=== PATIENT | female | born 1995 | race Caucasian/White ===

== ENCOUNTER 2024-03-03 17:35 | Outpatient (CLI) | payer SELFPAY ==
[2024-03-03 17:48] VITALS: BP 137/89; PULSE 67
[2024-03-03 17:49] VITALS: PULSE 67; O2SAT 100
[2024-03-03 19:03] VITALS: BP 118/74; PULSE 59
--- NOTE | 2024-04-24 18:21 | OB.TRI.NOTE ---
HPI - General General Date of Service: 03/03/24 HPI Narrative GARCÍA YE, is a 28 F who presents for rule out labor PFSH PFSH Medical History (Updated 04/24/24 @ 18:31 by Marla Carroll CNM) Gestational HTN Home Medications ?Medication ?Instructions ?Recorded ?Last Taken ?Type acetaminophen 325 mg tablet 650 mg (2 x 325 mg) PO Q6H PRN 03/06/24 Unknown Rx (Tylenol) pain #30 tabs docusate sodium 100 mg capsule 100 mg PO BID constipation #30 caps 03/06/24 Unknown Rx (Colace) ibuprofen 600 mg tablet 600 mg PO Q6H PRN pain #30 tabs 03/06/24 Unknown Rx Allergy/AdvReac Type Severity Reaction Status Date / Time No Known Allergies Allergy Verified 03/04/24 09:12 Surgical History (Updated 03/11/24 @ 00:03 by Christiana Moreira) Status post bilateral salpingectomy S/P repeat low transverse Previous section Social History Smoking Status: Never smoker History Elective abortions Hx Para 2 Spontaneous abortions Hx # Term Pregnancies Ectopic pregnancies Hx # Pregnancies Multiple births # of living children NST FHR Rate Baby A Baseline: 120 Variability:: Moderate Accelerations:: 15 x 15 Decelerations:: None NST Reactive:: Yes Uterine Activity:: irregular Assessment & Plan (1) False labor: PLAN: Plan 1) False labor 2) Unchanged cervix 3) D/C home
== END 2024-03-03 19:05 | disposition home or self-care (01) ==
LOC: WPOUT 17:46 → WP 17:47
PROVIDERS: Referring Provider Advanced Practice Midwife; Visit Provider Advanced Practice Midwife
DX: O47.9 False labor, unspecified (principal); Z3A.00 Weeks of gestation of pregnancy not specified
CPT/HCPCS: 59025; 59050; 99221; G0378

== ENCOUNTER 2024-03-04 08:42 | Inpatient (IN) | payer SELFPAY ==
[2024-03-04] VITALS (18 sets, daily range): BP systolic 115–129; BP diastolic 76–89; PULSE 59–84; RESP 14–16; TEMP 36.1–36.7; O2SAT 97–100; BMI 26.0
[2024-03-04] MEDS: Lactated Ringers 1,000 ML 999 ML IV (08:45)
[2024-03-04 09:14] LABS: Absolute Lymphocyte Count 1.72 X10^3/uL (0.83-4.51); Absolute Neutrophil Count 4.5 X10^3/uL (2.0-7.7); Basophil# 0.02 X10^3/uL; Basophil% 0.3 % (0-1); Eosinophil# 0.16 X10^3/uL; Eosinophils% 2.3 % (0-5); Hematocrit 38.6 % (37-47); Hemoglobin 12.9 g/dL (12.0-15.0); Lymphocyte # 1.72 X10^3/ul (0.83-4.51); Lymphocyte % 24.9 % (19-41); Mean Corp Hgb Conc 33.4 g/dL (32-36); Mean Corpuscular Hgb 26.5 pg (27.0-32.0); Mean Corpuscular Volume 79.3 fL (81-99); Monocyte# 0.49 X10^3/uL; Monocyte% 7.1 % (0-10); NRBC Flagged by Analyzer 0 % (0-5); Neutrophil % 65.1 % (47-70); Platelet Count 169 K/mm3 (150-450); RBC Distribution Width CV 14.6 % (11.6-14.6); RBC Distribution Width SD 41.5 fl (35.1-43.9); Red Blood Count 4.87 M/mm3 (4.2-5.4); White Blood Count 6.9 K/mm3 (4.4-11.0)
--- NOTE | 2024-03-04 09:32 | PCM.HP.OB ---
HPI - General General Date of Admission: 03/04/24 HPI Narrative GARCÍA YE, is a 28 F @ 38 weeks who presents c/o ctx and bleeding- found to be 3cm , last night she was evaluated in L&D and was closed. so making cervical change- pt requesting salpingectomy- is self pay pt reports signed title 19. Case Managers Dr. Felix Melvin used for consent today. PFSH PFS Medical History (Updated 03/04/24 @ 09:[address] Gertrude Chaidez MD) Gestational HTN Home Medications ?Medication ?Instructions ?Recorded ?Last Taken ?Type vit no.95-ferrous 1 tab PO DAILY 03/04/24 03/03/24 21:00 History fumarate 28 mg-folic acid 800 mcg 1 TAB tablet () Allergy/AdvReac Type Severity Reaction Status Date / Time No Known Allergies Allergy Verified 03/04/24 09:12 Social History Smoking Status: Never smoker History Elective abortions Hx Para 2 Spontaneous abortions Hx # Term Pregnancies Ectopic pregnancies Hx # Pregnancies Multiple births # of living children NST FHR Rate Baby A Baseline: 130 Variability:: Moderate Accelerations:: 15 x 15 Decelerations:: None NST Reactive:: Yes FHR Category:: Category I Uterine Activity:: irregular Vital Signs Vital Signs Vital Signs: 03/04/24 09:05 Temperature 98.0 F Temperature Source Temporal Pulse Rate 64 Respiratory Rate 16 Blood Pressure 125/82 H Blood Pressure Mean 96 Blood Pressure Source Monitor Blood Pressure Position Semi-Fowlers Blood Pressure Location Left Arm Pulse Ox 99 Oxygen Delivery Method Room Air Weight Weight: 62.5 kg Body Mass Index (BMI) 26.0 Labs Labs Labs: Blood Type O POSITIVE Antibody Screen NEGATIVE Hct 38.6 % (37-47) Hgb 12.9 g/dL (12.0-15.0) Syphilis Total Ab Pending Assessment & Plan (1) Previous delivery affecting : (2) Request for sterilization: (3) 38 weeks gestation of : PLAN: Plan Admit to L&D [place] FHR/TOCO NPO status Monitor VS OR team notified PRE ABX ordered consent obtained- risks of surgery and possible need for transfusion discussed, discussed salpingectomy is permanent - pt wishes to proceed.
[2024-03-04] MEDS: Sodium Citrate/Citric Acid 30 ML UDC PO (09:37)
[2024-03-04] MEDS: Acetaminophen 500 MG Tablet 1000 MG PO ×4 (09:37→23:52)
[2024-03-04] MEDS: Cefazolin 2 GM in Syringe IV (09:43)
--- NOTE | 2024-03-04 10:11 | FALS_PTH ---
PATIENT: GARCÍA GARCIA LOC: [facility] U#:[id number] AGE/SX: 28 ROOM: WP008 RE03/04/[address]: Dr. Gertrude Chaidez, MDDOB: 1995 BED: 1 DIS: 03/06/2024 SPEC #: [id number] RECD: 03/04/24 14:46 STATUS: BASSAM RUBÉN #: [id number] JOSE: 03/04/24 10:[address]: Gertrude Chaidez DEPT: SURGICAL PATHOLOGY RECD BY: Power Lord ENTERED: 03/06/24 07:45 SP TYPE: FALL TUBES OTHR DR: Deb Primary Care Phys Tissues: Fallopian tube Procedures: Surgery Specimen Level II HEADER OPERATION: Tubal ligation PRE-OP DIAGNOSIS: Further testing from tubal TISSUE SUBMITTED: Bilateral fallopian tubes MICROSCOPIC DIAGNOSIS Right fallopian tube, salpingectomy: Complete cross section of fallopian tube with no pathologic change. Left fallopian tube, salpingectomy: Complete cross section of fallopian tube with no pathologic change. AM: 03/07/2024 MICROSCOPIC DESCRIPTION Slides are reviewed. GROSS DESCRIPTION Received in fixative is one container labeled with the patient's name and designated bilateral fallopian tubes - stich on right. The specimen consists of two fallopian tubes with an average length of 6.0 cm and has an average diameter of 0.8 cm. Both fallopian tubes have normal fimbriated ends. No mass lesions are identified. Load Builder sections are submitted in two cassettes as follows: 1 - right fallopian tube, 2 - left fallopian tube. / AM: 03/06/2024 TC:4 CPT: 24339 x2
--- NOTE | 2024-03-04 10:39 | EX.PCM.OBRPT ---
Operative Report (OB) Cecarean Details Procedure Type: low transverse (bilateral salpingectomy ) Date of Procedure: 03/04/24 Procedure Start Time: : Procedure Stop Time: :52 Time of Delivery: 10:11 Pre-Operative Diagnosis: Repeat Elective and Desires elective sterilization Post-Operative Diagnosis: Same as Pre-operative diagnosis Classification: ARLEEN Type of Anesthesia: Spinal Antibiotic Given: Ancef 2 grams IV x1 Drain: Charles to straight drain Estimated Blood Loss: 600 Fluids Replaced: 1000 Findings Description of surgery: After informed consent was obtained the patient was taken the operating room she was given spinal anesthesia. She was then placed in the supine position. She was prepped and draped in the normal sterile fashion. Anesthesia was found to be adequate. At this time a Pfannenstiel skin incision was made with a knife was carried down to the underlying layer of the fascia. The fascial incision was then extended laterally using camacho scissor Attention was then turned to the superior aspect of the fascial edge was grasped with 2 straight Arthur clamps tented up and the rectus muscle dissected off sharply Rectus muscles were then in the midline sharply and peritoneum was entered bluntly. Gentle opposing traction was placed. At this time the vesicouterine peritoneum was identified. Scalpel was used to make a uterine incision in a low transverse fashion. The uterus was then entered bluntly gentle opposing traction was placed to extend this incision. Membranes were ruptured clear. Infant's head was brought to the uterine incision was delivered atraumatically. was vigourous at delivery and delayed cord clamping performed. Cord was clamped and cut was handed to the waiting nursery team. The Placenta was removed from the uterus. The uterus was then removed from the abdominal cavity. The uterus was cleared of all clots and debris using a lap. At this time the uterine incision was reapproximated using #1 Vicryl in a running locked fashion. Hemostasis was appreciated. At this time the LigaSure device was open. Babcocks were placed on the tubes and LigaSure was used to coagulate and ligate along the mesosalpinx in an avascular area. The tubes were removed in their entirety. Repeated on both sides. Posterior cul-de-sac was then cleared of all clots and debris. Uterus was placed back in the abdominal cavity. Gutters were cleared of all clots and debris. Uterine incision was reevaluated and noted to be of excellent hemostasis. Heema blast was placed over the uterine incision. At this time the peritoneum and muscle was grasped with Kellys reapproximated using #2 Vicryl suture in a running fashion. Hemablast placed over the rectus muscle. Fascia was then reapproximated using #1 Vicryl in a running fashion. Subcu layer was irrigated with NS, reapproximated with #2 0 plain gut suture in an interrupted fashion. Subcu layer was closed using 4-0 Viryl in a subcu fashion. Dry sterile dressing was applied. Instrument lap needle count correct ?2. Anticipated normal postoperative course. 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
[2024-03-04 10:56] LABS: Syphilis Antibodies Non-reactive
[2024-03-04] MEDS: Oxytocin 15 Units/NS 250ml 15 UNITS/250 ML IV.SOLN 83 UNITS IV (11:10)
[2024-03-04] MEDS: Ketorolac 30 MG/ML Syringe IV ×3 (11:33→23:53)
[2024-03-04] MEDS: Ondansetron 4 MG/2 ML Vial IV (14:04)
[2024-03-04] MEDS: Lactated Ringers 1,000 ML 100 ML IV (14:11)
[2024-03-04] MEDS: Nalbuphine 10 MG/ML Ampul 5 MG IV (19:53)
[2024-03-04] MEDS: 0.9% Saline Lock 10 ML Syringe IV ×2 (19:54→23:53)
[2024-03-04] MEDS: FLU VACC 2024-25(6MOS UP)/PF 45 MCG/0.5 ML SYRINGE IM (22:48)
[2024-03-05 03:59] VITALS: BP 109/82; PULSE 60; RESP 16; TEMP 36.6; O2SAT 97
[2024-03-05] MEDS: Ketorolac 30 MG/ML Syringe IV (05:52)
[2024-03-05 06:11] LABS: Hematocrit 32.9 % (37-47); Hemoglobin 11.1 g/dL (12.0-15.0); Mean Corp Hgb Conc 33.7 g/dL (32-36); Mean Corpuscular Hgb 26.8 pg (27.0-32.0); Mean Corpuscular Volume 79.5 fL (81-99); Mean Platelet Vol. 10.6 fl (6.2-12.0); Platelet Count 141 K/mm3 (150-450); RBC Distribution Width CV 14.8 % (11.6-14.6); RBC Distribution Width SD 42.2 fl (35.1-43.9); Red Blood Count 4.14 M/mm3 (4.2-5.4)
--- NOTE | 2024-03-05 08:44 | PCM.PN.OB ---
Subjective Subjective Doing well per patient and nursing staff. Ambulating and taking PO without difficulty. Voiding and passing flatus. Pain controlled. , services for assistance. Denies headache, visual changes, chest pain, shortness of breath, leg pain or increased bleeding. Lochia normal. Objective Data Objective Data Vital Signs: Vital Signs Temp Pulse Resp BP Pulse Ox O2 Del Method 98 F 60 16 109/82 H 97 Room Air 03/05/24 03:59 03/05/24 03:59 03/05/24 03:59 03/05/24 03:59 03/05/24 03:59 03/05/24 03:59 Oxygen Delivery Method Room Air Weight: 137 lb 12.623 oz Body Mass Index (BMI) 26.0 Intake & Output: Intake and Output for Last 24 Hours 03/03/24 03/04/24 03/05/24 23:59 23:59 23:59 Intake Total 1320 / 1320 1000 / 1000 Output Total 800 / 800 150 / 150 Balance 520 / 520 850 / 850 Lab / Micro Data 03/05/24 05:57 Labs: Laboratory Results - last 24 hr 03/04/24 08:55: WBC 6.9, RBC 4.87, Hgb 12.9, Hct 38.6, MCV 79.3 L, MCH 26.5 L, MCHC 33.4, RDW Std Deviation 41.5, RDW Coeff of Steven 14.6, Plt Count 169, MPV 11.0, Immature Gran % (Auto) 0.300, Neut % (Auto) 65.1, Lymph % (Auto) 24.9, Van Zandt % (Auto) 7.1, Eos % (Auto) 2.3, Baso % (Auto) 0.3, Absolute Neuts (auto) 4.5, Absolute Lymphs (auto) 1.72, Nucleated RBC % 0, Syphilis Total Ab Non-reactive, Blood Type O POSITIVE, Antibody Screen NEGATIVE 03/05/24 05:57: WBC 6.0, RBC 4.14 L, Hgb 11.1 L, Hct 32.9 L, MCV 79.5 L, MCH 26.8 L, MCHC 33.7, RDW Std Deviation 42.2, RDW Coeff of Steven 14.8 H, Plt Count 141 L, MPV 10.6 ROS Constitutional Constitutional: Reports systems reviewed and no addt'l complaints, except as documented; Denies headache(s) Eyes Eyes: Denies acute decrease in peripheral vision, blurry vision or change in vision ENT HEENT: Reports systems reviewed and no addt'l complaints, except as documented Cardiovascular Cardiovascular: Denies chest pain or dizziness Respiratory/Chest Respiratory/Chest: Denies cough, dyspnea, dyspnea on exertion, shortness of breath at rest or shortness of breath with exertion Gastrointestinal Gastrointestinal: Denies abdominal pain, diarrhea, nausea or vomiting Genitourinary Genitourinary: Denies abdominal discomfort Musculoskeletal Musculoskeletal: Denies limited range of motion Integumentary Integumentary: Reports systems reviewed and no addt'l complaints, except as documented Neurologic Neurologic: Reports systems reviewed and no addt'l complaints, except as documented Psychiatric Psychiatric: Reports systems reviewed and no addt'l complaints, except as documented Endocrine Endocrinology: Reports systems reviewed and no addt'l complaints, except as documented Hematologic/Lymphatic Hematologic/Lymphatic: Reports systems reviewed and no addt'l complaints, except as documented Allergic/Immunologic Allergic/Immunologic: Reports systems reviewed and no addt'l complaints, except as documented Physical Exam Const alert and oriented x3 General Appearance: cooperative Orientation / Consciousness: awake, oriented to person, oriented to place and oriented to time Exam Limitations: no limitations HEENT normocephalic Head and Scalp: normal to inspection, normocephalic and atraumatic Face and Sinus: normal facial exam Eyes General Eye: normal appearance of both eyes Neck full ROM Chest Chest: symmetrical chest wall rise Resp normal respiratory effort and normal air movement Auscultation: clear to auscultation bilaterally Cardio regular rate, regular rhythm, S1 normal heart sound, S2 normal heart sound, no murmurs, no rub, no gallops and no clicks GI normal to inspection, nondistended, normoactive bowel sounds and non-tender GI Narrative: dressing clean and dry appearance of the vagina normal Bladder / Kidney Exam: no CVA tenderness Back/Spine normal ROM Extremity normal to inspection and full ROM Skin no rashes or lesions noted Neuro oriented x3, CN's II-XII intact bilaterally and moves all extremities Sensorium / Orientation: awake, alert and oriented to person Motor Exam: clonus absent Deep Tendon Reflexes: Rt Patellar (L4): 2+ and Lt Patellar (L4): 2+ Assessment & Plan (1) Request for sterilization: (2) Previous delivery affecting : (3) S/P repeat low transverse : (4) Status post bilateral salpingectomy: PLAN: Plan 1) Routine POD#1 Repeat section with bilateral salpingectomy 2) Vitals stable 3) I&O 4) Pain management 5) services PRN 6) Planning D/C home tomorrow
[2024-03-05 09:00] VITALS: BP 118/78; PULSE 92; RESP 16; TEMP 36.8
[2024-03-05] MEDS: Senna/Docusate Sodium 1 Tablet PO (09:07)
[2024-03-05] MEDS: Acetaminophen 500 MG Tablet 1000 MG PO ×3 (09:07→21:13)
[2024-03-05] MEDS: Ibuprofen 600 MG Tablet PO ×2 (12:03→17:44)
[2024-03-05 13:20] VITALS: BP 108/74; PULSE 68; RESP 16; TEMP 36.8
[2024-03-05 20:05] VITALS: BP 120/77; PULSE 61; RESP 16; TEMP 36.7; O2SAT 98
[2024-03-06] MEDS: Ibuprofen 600 MG Tablet PO ×3 (00:01→12:48)
[2024-03-06 02:30] VITALS: BP 115/74; PULSE 66; RESP 18; TEMP 36.1; O2SAT 96
[2024-03-06] MEDS: Acetaminophen 500 MG Tablet 1000 MG PO ×3 (03:16→15:35)
--- NOTE | 2024-03-06 08:26 | DCINST_ITS ---
Discharge Instructions Diet Discharge Diet: No restrictions DC O2, CPAP, BIPAP needs Additional Home O2 Discharge instructions: No Dressing / Incision Discharge Activity: May Drive (once you feel strong enough to slam on a brake or turn a steering wheel sharply) and May Shower May resume sexual activity in: 6 weeks (nothing in the vagina for 6 weeks) Ice area for (Minutes): 15 Weight Bearing Status: Weight bearing as tolerated Lifting Restrictions: nothing heavier than baby Dressing / Incision Call your doctor if your incision/area has: Continuous Slow Oozing, Sudden Increased Bleeding, Increased Pain/ Swelling, Increased Redness, Foul Smelling Discharge and Swelling at the incision site Call your doctor if you observe: Fever of 101 or Higher, Coldness, Increased Pain, Numbness or Tingling, Inability to urinate, Inability to have a bowel movement, Using more than 1 pad per hour, Shortness of breath, Dizziness, Swelling in the ankles, Chest pain, Increased palpitations (irregular heartbeat), Calf discomfort and Uncontrolled pain Cleanse incision/area with: Soap & Water Follow Up Care Please Follow Up With: Gertrude Chaidez MD When: 1-2 weeks for an incision check 6 weeks for a visit Test Results: Test results from this visit will be discussed in further detail at your follow- up appointment, if applicable. Discharge Plan Admission Admit Date/Time: 03/04/24 08:42 Primary Reason for Your Visit: Delivery Attending Provider: Gertrude Chaidez Primary Care Provider: Care Physician,Deb Primary Instructions Patient Instructions: After a Discharge Orders/Prescriptions Prescriptions: New ibuprofen 600 mg tablet 600 mg PO Q6H PRN (Reason: pain) Qty: 30 0RF acetaminophen [Tylenol] 325 mg tablet 650 mg PO Q6H PRN (Reason: pain) Qty: 30 0RF docusate sodium [Colace] 100 mg capsule 100 mg PO BID Qty: 30 0RF Discontinued PNV cmb#95-ferrous fumarate-FA [] 28 mg iron- 800 mcg tablet 1 tab PO DAILY Referrals / Follow Up: Care Physician,No Primary [Primary Care Provider] - Disposition Disposition (needs filled in before D/C Order can be placed): Home, Self Care
--- NOTE | 2024-03-06 08:29 | PCM.PN.OB ---
Subjective Subjective Pt doing well. Pain well controlled. Lochia normal. Ambulating and voiding without difficulty. Tolerating a diet without nausea or vomiting. Denies CP, SOB, lightheadedness, dizziness, leg pain. Friend at bedside and translating for the patient. Objective Data Objective Data Vital Signs: Vital Signs Temp Pulse Resp BP Pulse Ox O2 Del Method 96.9 F L 66 18 115/74 96 Room Air 03/06/24 02:30 03/06/24 02:30 03/06/24 02:30 03/06/24 02:30 03/06/24 02:30 03/06/24 02:30 Oxygen Delivery Method Room Air Weight: 137 lb 12.623 oz Body Mass Index (BMI) 26.0 Intake & Output: Intake and Output for Last 24 Hours 03/04/24 03/05/24 03/06/24 23:59 23:59 23:59 Intake Total 1320 / 1320 1000 / 1000 Output Total 800 / 800 150 / 150 Balance 520 / 520 850 / 850 Lab / Micro Data 03/05/24 05:57 Physical Exam Const alert and no apparent distress General Appearance: comfortable HEENT normocephalic Resp normal respiratory effort GI soft to palpation and non-distended GI Narrative: ATTP, non acute, incision c/d/i Extremity no calf tenderness Assessment & Plan (1) Status post bilateral salpingectomy: (2) S/P repeat low transverse : PLAN: Doing well post op. Meeting milestones for discharge. Patient desires to go home. Discharge instructions reviewed and questions answered.
--- NOTE | 2024-03-06 08:32 | PCM.DC.SUM ---
Providers Date of Admission: 03/04/24 Date of Discharge: 03/06/24 Primary Care Physician: Deb Primary Care Phys Reason For Visit: C SECTION Diagnosis Discharge Diagnosis (1) Status post bilateral salpingectomy: Status: Acute Code(s): Z90.79 - Acquired absence of other genital organ(s) (2) S/P repeat low transverse : Status: Acute Code(s): Z98.891 - History of uterine scar from previous surgery Plan: Doing well post op. Meeting milestones for discharge. Patient desires to go home. Discharge instructions reviewed and questions answered. Medications at Discharge Home Medications acetaminophen 325 mg tablet (Tylenol) 650 mg (2 x 325 mg) PO Q6H PRN pain #30 tabs 03/06/24 docusate sodium 100 mg capsule (Colace) 100 mg PO BID constipation #30 caps 03/06/24 ibuprofen 600 mg tablet 600 mg PO Q6H PRN pain #30 tabs 03/06/24 Hospital Course Operations section and - (bilateral salpingectomy) Summary of Care Provided Minutes Spent on Discharge: 15 Hospital Course: Patient was admitted at 38 week gestation in labor. She desired a repeat section and a tubal sterilization. See operative report for details regarding repeat section with bilateral salpingectomy. She was discharged home in good condition on POD#2 to follow up in the office. Weight / BMI Weight Weight: 137 lb 12.623 oz Body Mass Index (BMI) 26.0 ABG / Lab / Microbiology Data 03/05/24 05:57 D/C Instructions Discharge Diet: No restrictions May resume sexual activity in: 6 weeks (nothing in the vagina for 6 weeks) Ice area for (Minutes): 15 Weight Bearing Status: Weight bearing as tolerated Call your doctor if your incision/area has: Continuous Slow Oozing, Sudden Increased Bleeding, Increased Pain/ Swelling, Increased Redness, Foul Smelling Discharge and Swelling at the incision site Call your doctor if you observe: Fever of 101 or Higher, Coldness, Increased Pain, Numbness or Tingling, Inability to urinate, Inability to have a bowel movement, Using more than 1 pad per hour, Shortness of breath, Dizziness, Swelling in the ankles, Chest pain, Increased palpitations (irregular heartbeat), Calf discomfort and Uncontrolled pain Cleanse incision/area with: Soap & Water DC O2, CPAP, BIPAP Needs Additional Home O2 Discharge instructions: No DC home with Oxygen: No Please Follow Up With: Gertrude Chaidez MD When: 1-2 weeks for an incision check 6 weeks for a visit Meaningful Use Info Meaningful Use Meaningful Use Diagnoses (Choose all that apply): None applicable Ischemic Stroke Statin Dosing Therapy Reference: STATIN DOSE THERAPY REFERENCE: * Patients > 75 years receive moderate or high dose statin therapy. * Patients 75 years or YOUNGER should receive HIGH intensity statin dose unless contraindicated. You will be required to document reason for non-treatment if statin daily dose does not meet guidelines. HIGH DOSE STATIN THERAPY DAILY Atorvastatin > than or = to 40 mg Rosuvastatin > than or = to 20 mg Amlodipine + Atorvastatin > than or = to 2.5/40 mg Ezetimibe + Simvastatin 10/80 mg Simvastatin 80mg Discharge Plan Admission Admit Date/Time: 03/04/24 08:42 Primary Reason for Your Visit: Delivery Attending Provider: Gertrude Chaidez Primary Care Provider: Care Physician,Deb Primary Instructions Patient Instructions: After a Discharge Orders/Prescriptions Prescriptions: New ibuprofen 600 mg tablet 600 mg PO Q6H PRN (Reason: pain) Qty: 30 0RF acetaminophen [Tylenol] 325 mg tablet 650 mg PO Q6H PRN (Reason: pain) Qty: 30 0RF docusate sodium [Colace] 100 mg capsule 100 mg PO BID Qty: 30 0RF Discontinued PNV cmb#95-ferrous fumarate-FA [] 28 mg iron- 800 mcg tablet 1 tab PO DAILY Referrals / Follow Up: Care Physician,Deb Primary [Primary Care Provider] - Disposition Disposition (needs filled in before D/C Order can be placed): Home, Self Care
[2024-03-06] MEDS: Senna/Docusate Sodium 1 Tablet PO (09:39)
[2024-03-06 09:43] VITALS: BP 127/92; PULSE 76; RESP 14; TEMP 36.6; O2SAT 97
[2024-03-06 13:02] VITALS: BP 123/86; PULSE 64; RESP 14; TEMP 36.6; O2SAT 98
[2024-03-06 18:29] VITALS: BP 133/91; PULSE 66; RESP 16; TEMP 36.7; O2SAT 98
[2024-03-06 18:30] VITALS: RESP 16
[2024-03-07 13:33] LABS: Pathology Specimen OB SEE PATHOLOGY REPORT
--- NOTE | 2024-03-08 12:04 | CASEMGMT ---
Social Work Assessment Labor and Delivery Unit Date of Referral: 03/04/24 Time of Referral: 1508 Referred By: Dr. Marcelino Date of Intervention: 03/06/24 Time of Intervention: 1430 Reason for Referral: resources, pt has no insurance, car seat or crib for baby at this time Sw completed chart review and acknowledges social work consult due to issues above. Sw presented to bedside and introduced self to mother of baby (LOUISE- Kierra) and explained sw role. Sw had family friend present, Abbey and MOB stated okay to complete assessment with friend present. Sw completed psychosocial assessment and got MOB connected to beneficial resources. History obtained from: MOB and friend, Abbey Household composition:LOUISE is currently residing with her sister, baby to be included in household when ready for discharge. MOB denies any issues or concerns with current housing. Patient's parent/guardian status: LOUISE states that she is from [facility] [facility], and has two children there who are being cared for by her mother. LOUISE states that she has been in the [facility] for 2 years and was in a relationship with father of baby, Dg. LOUISE reports that she is still in relationship with Dg, however he got deported back to [facility]. LOUISE states that she and FOB are still in relationship, but due to distance he is not a support to her at this time. Medical History:LOUISE is 28 year old female who is 3, para 2- now 3 following labor and delivery of . LOUISE received care during with [facility]. LOUISE presentd to hospital and required repeat for delivery of baby. Baby girl, named Taylor, was born on 03/04/24 weighing 6lb 6oz with apgars of 9 and 9 at one and five minutes of life, respectfully. LOUISE states that she is breast feeding and it is going well. Educational Status: LOUISE reports to graduating from high school in [place] [facility]. Financial Status: LOUISE was working on [employer] in [place], however now that baby is born she is not working. 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 Infant Supplies: LOUISE states that she has clothes, diapers and wipes for baby, but she does not have a crib or safe sleep space. LOUISE states that the baby was due on 12/16, so she thought she had more time to obtain these items. Sw got MOB connected to [facility] who helped her obtain a crib and car seat in order for baby to be discharged to home. Childcare/Caregiver(s): LOUISE and her sister will be the primary caregivers to baby. Transportation: LOUISE does not drive, she is dependent on her friend Abbey and her sister to help her with transportation Programs/Agencies Involved: MOB is not connected to any community agencies that help her financially. Sw provided MOB with list of pending sale to [facility] resources that she is able to get connected to, including: [facility], WIC and [facility]. MOB is also connected to resources through [facility] [employer] who will ensure that baby gets connected to Medicaid insurance. Children Services/Legal Issues: No history of children services involvement. At this time MOB is caring for baby and meeting her basic needs, no concerns regarding abuse, neglect and no referral to be made at this time. Behavioral Health Issues: Mental Health History: MOB denies mental health diagnoses or history. Substance Use History: MOB denies substance use history prior to and during . Family History: MOB denies family history of addiction/ substance use or significant mental health diagnoses. Maternal and Drug Screens: No drug screens observed during chart review. Family/Social Stressors: LOUISE expresses frustration due to not obtaining things that she needs for baby, including: car seat and safe sleep space prior to baby being born. Support Systems: LOUISE identifies that her sister and her friend, Abbey, are her biggest supports. Depression and Anxiety/Shaken Baby/Safe Sleeping:Sw educated MOB on signs and symptoms of baby blues and mood and anxiety disorders to be mindful of during this period. MOB states that she has not experienced any of these symptoms from her prior deliveries. MOB states that if she were to struggle with her mental health during this period her sister would be able to recognize that she is struggling and would know how to help and support her. Sw educated MOB on shaken baby prevention and ABCs of safe sleep. MOB expressed understanding. ASSESSMENT: MOB and baby admitted following labor and delivery of . MOB Maori speaking but has access to shirt ironer supervisor services and her friend Abbey who helps her interpret. MOB is not connected to any community resources and is in need of obtaining a crib and a car seat. Sw helped patient in obtaining those items to prepare for discharge. MOB does not have history of mental health history or substance use history. MOB answered questions asked but did not elaborate on answers. MOB observed to be holding baby and attentive to her needs in loving and affectionate manner. PLAN: MOB and baby to be discharged today. MOB got connected to [facility] who provided a car seat and safe sleep space. MOB was provided list of pending sale to [facility] and literature on signs and symptoms of baby blues and depression. No other services requested or indicated. Cornelius Oliver, CIVIL ENGINEERING PROFESSIONAL, DRUG WORKER
--- NOTE | 2024-03-10 17:05 | NURSING ---
Attempted f/up phone call, no ans, no voicemail set up
== END 2024-03-06 19:00 | disposition home or self-care (01) | DRG 785 ==
LOC: WPOUT 08:48 → WP 08:48
PROVIDERS: Admitting Provider Obstetrics & Gynecology; Visit Provider Obstetrics & Gynecology
DX: O34.211 Maternal care for low transverse scar from previous cesarean delivery (principal); Z30.2 Encounter for sterilization; Z37.0 Single live birth; Z3A.38 38 weeks gestation of pregnancy
CPT/HCPCS: 59025; 59050; 85025; 85027; 86780; 86850; 86900; 86901; 88302; 90656; 99221; J7120; A4216; G0378; J2405